=== PATIENT | female | born 1985 | race Caucasian/White ===

== ENCOUNTER 2016-12-23 14:49 | Emergency (ER) | payer OTHER ==
[~2016-12-23] VITALS: Ht 162.6 cm; Wt 82.0 kg
[~2016-12-23 14:49] MED LIST: PENVK500 PO; Z.0.NO CURRENT MEDS
[2016-12-23 14:51] VITALS: BP 157/89; PULSE 70; RESP 15; TEMP 98.4; O2SAT 100
--- NOTE | 2016-12-23 15:08 | PD ---
HPI Chief Complaint: Injury Time Seen by Provider: 15:02 Travel History International Travel<30 days: No Contact w/Intl Traveler<30days: No Traveled to known affect area: No History of Present Illness HPI 31-year-old female presents the emergency Department with 3 day history of right lateral foot pain without specific injury. Patient has point tenderness over the base of the fifth metatarsal on the right foot there is no obvious sign of injury or swelling. No erythema. Pain is 9 out of 10 and worse with ambulation. No numbness or tingling are noted. She has no known drug allergies. PFSH Past Medical History Cancer: No Diabetes: No Glaucoma: No Hepatitis: No Hiatal Hernia: No Hypertension: No Thyroid Disease: No ?: Not LMP: 11/15/16 : 3 Para: 2 Past Surgical History Pacemaker: No Social History Alcohol Use: No Tobacco Use: No Substance Use: No Allergies-Medications (Allergen,Severity, Reaction): Coded Allergies: No Known Allergies (Verified Adverse Reaction, Unknown, 12/23/16) Reported Meds & Prescriptions Reported Meds & Active Scripts Active Prednisone 20 Mg Tab 20 Mg PO BID 5 Days Review of Systems Except as stated in HPI: all other systems reviewed are Neg General / Constitutional: No: Fever Eyes: No: Visual changes HENT: No: Headaches Cardiovascular: No: Chest Pain or Discomfort Respiratory: No: Shortness of Breath Gastrointestinal: No: Abdominal Pain Genitourinary: No: Dysuria Musculoskeletal: Positive: Arthralgias, Limited ROM, Pain (see history of present illness) Skin: No Rash Neurologic: No: Weakness Psychiatric: No: Depression Endocrine: No: Polydipsia Hematologic/Lymphatic: No: Easy Bruising Physical Exam Narrative GENERAL: Patient appears in mild distress. SKIN: Warm and dry. Normal color. Normal turgor. No signs of trauma. HEAD: Atraumatic. Normocephalic. EYES: Pupils equal and round. No scleral icterus. No injection or drainage. ENT: No nasal bleeding or discharge. Mucous membranes pink and moist. NECK: Trachea midline. No JVD. CARDIOVASCULAR: Regular rate and rhythm. RESPIRATORY: No accessory muscle use. Clear to auscultation. Breath sounds equal bilaterally. MUSCULOSKELETAL: Extremities without clubbing, cyanosis, or edema. No obvious deformities. Patient has point tenderness over the proximal fifth metatarsal. NEUROLOGICAL: Awake and alert. No obvious cranial nerve deficits. Motor grossly within normal limits. Five out of 5 muscle strength in the arms and legs. Normal speech. PSYCHIATRIC: Appropriate mood and affect; insight and judgment normal. Data Data Last Documented VS Vital Signs Date Time Temp Pulse Resp B/P (MAP) Pulse Ox O2 Delivery O2 Flow Rate FiO2 12/23/16 14:51 98.4 70 15 157/89 (111) 100 Orders Orders Foot, Complete ([id number]) (12/23/16 15:05) Splint Or Brace Apply/Monitor (12/23/16 15:30) Ed Discharge Order (12/23/16 15:33) [facility] Medical Decision Making Medical Screen Exam Complete: Yes Emergency Medical Condition: Yes Differential Diagnosis Plantar fasciitis. Stress fracture. Fracture. Narrative Course X-ray of the right foot is obtained. X-ray show no acute findings per radiologist. Patient is treated for plantar fasciitis/tendinitis with prednisone and postop shoe. Work note is given through Monday. Patient is to continue on Tylenol as needed as well. Patient should ice and do stretching exercises as shown. Patient follow-up with her primary care physician if symptoms persist or worsen. Diagnosis Primary Impression: Tendinitis of right foot Referrals: Primary Care Physician Patient Instructions: General Instructions, Plantar Fasciitis (ED), Plantar Fasciitis Exercises (ED) Departure Forms: Work Release Enter return to work date: Dec 26, 2016 Additional Instructions: X-ray show no acute findings per radiologist. Patient is treated for plantar fasciitis/tendinitis with prednisone and postop shoe. Work note is given through Monday. Patient is to continue on Tylenol as needed as well. Patient should ice and do stretching exercises as shown. Patient follow-up with her primary care physician if symptoms persist or worsen. Scripts Prednisone (Prednisone) 20 Mg Tab 20 MG PO BID for 5 Days, #10 TAB 0 Refills Prov: Timothy Malone MD 12/23/16 Disposition: 01 DISCHARGE HOME Condition: Stable Son Leonardo Dec 23, 2016 15:08
[2016-12-23] MEDS ORDERED: PRED20 PO (15:31)
--- NOTE | 2016-12-23 16:05 | RADRPT ---
EXAM DATE/TIME: 12/23/2016 15:15 [facility] COMPARISON: No previous studies available for comparison. INDICATIONS : Right foot pain for 24 hours with no known injury MEDICAL HISTORY : None. SURGICAL HISTORY : None. ENCOUNTER: Initial ACUITY: 1 day PAIN SCORE: 10/10 LOCATION: Right base of 5th metatarsal FINDINGS: Three view examination of the right foot demonstrates no soft tissue swelling, dislocation, or fractu re. The tarsal bones appear intact. The interphalangeal and metatarsophalangeal joints are intact. The calcaneus is intact. Bony mineralization is normal. Calcaneal spurs at the plantar aponeurosis and Achilles attachment. CONCLUSION: Calcaneal spurs. Nothing acute. Thom Angeles MD on December 23, 2016 at 16:03 Board Certified Radiologist. This report was verified electronically.
== END 2016-12-23 16:05 | disposition home or self-care (01) ==
LOC: NEPK 14:49
DX: M72.2 Plantar fascial fibromatosis (principal)
CPT/HCPCS: 73630; 99283; L3260

== ENCOUNTER 2017-08-10 21:56 | Observation (INO) ==
[2017-09-15 12:12] VITALS: BP_SYST 114; PULSE 60; RESP 16; O2SAT 98
== END 2017-08-12 14:04 | disposition home or self-care (01) ==
LOC: NEPFCDU 21:56
PROVIDERS: ADMIT Surgery; ATTEND Surgery